=== PATIENT | female | born 1940 | race Caucasian/White ===

== ENCOUNTER 2017-12-27 14:16 | Inpatient (IN) | payer MEDICARE, OTHER ==
[~2017-12-27] VITALS: Ht 160 cm; Wt 55.3 kg
[~2017-12-27 14:16] MED LIST: ATOR40TA PO; HYDR25SU13 RC; LEVO88TA5 PO; MELA3TAB PO; NITR100C6 PO
[2017-12-27] MEDS ORDERED: QUET25TA PO (14:45)
[2017-12-27] MEDS ORDERED: TRAZ-144 PO (14:45)
[2017-12-27] MEDS ORDERED: LEVO100T PO (14:45)
[2017-12-27] MEDS ORDERED: D-MA1POW PO (14:45)
[2017-12-27] MEDS ORDERED: ACET-2154 PO (14:45)
[2017-12-27] MEDS ORDERED: TAMS-3 PO (14:45)
[2017-12-27] MEDS ORDERED: QUET50TA PO (14:45)
[2017-12-27] MEDS ORDERED: ALPR1TAB7 PO (14:45)
[2017-12-27] MEDS ORDERED: VENL37.55 PO (14:45)
[2017-12-27] MEDS ORDERED: CHRONULAC PO (14:45)
[2017-12-27] MEDS ORDERED: LORA-259 PO (14:45)
[2017-12-27 14:56] LABS: BASOPHILS # (AUTO) 0.1 K/uL (0.0-8.0); BASOPHILS % (AUTO) 1.3 % (0.0-2.0); EOSINOPHILS # (AUTO) 0.1 K/uL (0.0-0.7); EOSINOPHILS % (AUTO) 1.4 % (0.0-7.0); HEMATOCRIT 36.9 % (31.2-41.9); HEMOGLOBIN 12.5 g/dL (10.9-14.3); LYMPHOCYTES # (AUTO) 1.9 K/uL (20.0-40.0); LYMPHOCYTES % (AUTO) 26.7 % (20.5-51.5); MEAN CORPUSCULAR HGB CONC 34 g/dL (32.3-35.6); MEAN CORPUSCULAR VOLUME 88.4 fL (75.5-95.3); MONOCYTES # (AUTO) 0.5 K/uL (2.0-10.0); MONOCYTES % (AUTO) 7.2 % (0.0-11.0); NEUTROPHILS # (AUTO) 4.6 K/uL (1.8-8.9); NEUTROPHILS % (AUTO) 63.4 % (38.5-71.5); PLATELET COUNT (AUTO) 288 K/uL (179-408); RED BLOOD CELL COUNT(AUTO) 4.17 MIL/uL (3.63-4.92); WHITE BLOOD COUNT (AUTO) 7.2 K/uL (3.8-11.8)
[2017-12-27 14:57] LABS: ETHANOL < 3 MG/DL (0-0)
[2017-12-27 15:01] LABS: CARBON DIOXIDE 28 mmol/L (21-32); CHLORIDE 96 mmol/L (98-107); CREATININE 0.9 mg/dL (0.6-1.3); GLUCOSE 94 mg/dL (74-106); POTASSIUM 4.2 mmol/L (3.5-5.1); UREA NITROGEN, BLOOD 19 mg/dL (7-18)
[2017-12-27 15:02] LABS: ACETAMINOPHEN < 2.0 ug/mL (10-30); ALANINE AMINOTRANSFERASE 16 U/L (14-59); ALKALINE PHOSPHATASE 113 U/L (50-136); ASPARTATE AMINOTRANSFERASE 16 U/L (15-37); BILIRUBIN,DIRECT 0.1 mg/dL (0.0-0.2); BILIRUBIN,TOTAL 0.3 mg/dL (0.2-1.0); TOTAL PROTEIN, SERUM 7.4 g/dL (6.4-8.2)
[2017-12-27 15:37] LABS: *BILIRUBIN,URIN NEGATIVE (NEGATIVE); *BLOOD, URINE NEGATIVE (NEGATIVE); *CLARITY,URINE SLIGHTLY CLOUDY (CLEAR); *COLOR,URINE YELLOW (YELLOW); *KETONES,URINE NEGATIVE (NEGATIVE); *PROTEIN,URINE NEGATIVE (NEGATIVE); *UROBILINOGEN,URINE 0.2 E.U./dl (NORMAL); LEUKOCYTE ESTERASE ,URINE NEGATIVE (NEGATIVE); NITRITE, URINE NEGATIVE (NEGATIVE); UGLUCOSE NEGATIVE (NEGATIVE)
[2017-12-27 15:41] LABS: *AMPHETAMINE, URINE NEGATIVE (NEGATIVE); *BARBITURATE, URINE NEGATIVE (NEGATIVE); *CANNABINOID, URINE NEGATIVE (NEGATIVE); *COCCAINE, URINE NEGATIVE (NEGATIVE); *OPIATE, URINE NEGATIVE (NEGATIVE); *PHENCYCLIDINE SCREEN,URINE NEGATIVE (NEGATIVE)
[2017-12-27 15:53] LABS: BACTERIA,URINE NONE SEEN /HPF (NONE SEEN); RBC,URINE 0-3 /HPF (0-3); WBC,URINE 0-3 /HPF (0-3)
[2017-12-27 15:54] LABS: SQUAMOUS EPITHELIAL CELL,UR FEW /HPF (NONE SEEN)
[2017-12-27] MEDS ORDERED: ALPRAZOLAM 0.25 MG TABLET PO ONE (16:00)
[2017-12-27] MEDS ORDERED: ALPRAZOLAM 0.25 MG TABLET ONE ×2 (16:21→16:24)
[2017-12-27 16:40] VITALS: BP 126/69
[2017-12-27] MEDS ORDERED: HYDROXYZINE PAMOATE 25 MG CAPSULE PO PRN (17:00)
[2017-12-27] MEDS ORDERED: ZOLPIDEM 5 MG TABLET PO PRN (17:00)
[2017-12-27] MEDS ORDERED: ACETAMINOPHEN 325 MG TABLET PO PRN (17:00)
[2017-12-27] MEDS ORDERED: MAGNESIUM HYDROXIDE 30 ML LIQUID UDC PO PRN (17:00)
[2017-12-27] MEDS ORDERED: MAG HYDROX/AL HYDROX/SIMETH 30 ML LIQUID UDC PO PRN (17:00)
[2017-12-27 19:47] VITALS: BP 131/61
[2017-12-27] MEDS ORDERED: ALPRAZOLAM 0.5 MG TABLET PO ONE (21:55)
[2017-12-28] MEDS: ACETAMINOPHEN 325 MG TABLET PO SCH ×5 (01:01→18:00)
[2017-12-28] MEDS ORDERED: ALPRAZOLAM 0.5 MG TABLET ONE (01:16)
[2017-12-28] MEDS: LEVOTHYROXINE SODIUM 100 MCG TABLET PO SCH (06:55)
[2017-12-28 07:30] VITALS: BP 117/67
[2017-12-28] MEDS: TAMSULOSIN HCL 0.4 MG CAP.SR.24H PO SCH ×2 (08:43→17:22)
[2017-12-28] MEDS: DOCUSATE SODIUM 100 MG CAPSULE PO SCH ×2 (08:43→20:34)
[2017-12-28] MEDS ORDERED: D MANNOSE 1 GM PO SCH (09:00)
[2017-12-28] MEDS ORDERED: QUETIAPINE FUMARATE 25 MG TABLET PO ONE (11:43)
[2017-12-28] MEDS ORDERED: OLANZAPINE 10 MG VIAL IM ONE (12:00)
[2017-12-28] MEDS: DIVALPROEX 250 MG TABLET.DR PO SCH ×2 (14:15→17:21)
[2017-12-28] MEDS: ALPRAZOLAM 0.5 MG TABLET PO SCH ×2 (14:22→17:21)
[2017-12-28 15:37] VITALS: BP 125/58
[2017-12-28] MEDS: QUETIAPINE FUMARATE 25 MG TABLET PO SCH (17:23)
[2017-12-28 19:37] VITALS: BP 116/55
[2017-12-28] MEDS: ATORVASTATIN 10 MG TABLET PO SCH (20:34)
[2017-12-28] MEDS: QUETIAPINE FUMARATE 200 MG TABLET PO SCH (21:16)
[2017-12-29] MEDS: ACETAMINOPHEN 325 MG TABLET PO SCH
[2017-12-29] MEDS: LEVOTHYROXINE SODIUM 100 MCG TABLET PO SCH (07:00)
[2017-12-29] MEDS: HYDROXYZINE PAMOATE 25 MG CAPSULE PO PRN ×2 (08:13→14:43)
[2017-12-29] MEDS: DIVALPROEX 250 MG TABLET.DR PO SCH ×3 (08:20→16:54)
[2017-12-29] MEDS: DOCUSATE SODIUM 100 MG CAPSULE PO SCH ×2 (08:20→21:06)
[2017-12-29] MEDS: ALPRAZOLAM 0.5 MG TABLET PO SCH ×3 (08:20→16:54)
[2017-12-29] MEDS: QUETIAPINE FUMARATE 25 MG TABLET PO SCH ×3 (08:20→16:54)
[2017-12-29] MEDS: TAMSULOSIN HCL 0.4 MG CAP.SR.24H PO SCH ×2 (08:20→16:54)
[2017-12-29 08:30] VITALS: BP 131/65
[2017-12-29 17:24] VITALS: BP 118/69
[2017-12-29 20:09] VITALS: BP 101/55
[2017-12-29] MEDS: QUETIAPINE FUMARATE 200 MG TABLET PO SCH (21:05)
[2017-12-29] MEDS: ATORVASTATIN 10 MG TABLET PO SCH (21:06)
[2017-12-30] MEDS: HYDROXYZINE PAMOATE 25 MG CAPSULE PO PRN ×4 (03:19→16:52)
[2017-12-30] MEDS: LEVOTHYROXINE SODIUM 100 MCG TABLET PO SCH (06:19)
[2017-12-30 07:30] VITALS: BP 114/61
[2017-12-30 07:36] LABS: CARBON DIOXIDE 30 mmol/L (21-32); CHLORIDE 98 mmol/L (98-107); CREATININE 0.9 mg/dL (0.6-1.3); GLUCOSE 90 mg/dL (74-106); POTASSIUM 3.9 mmol/L (3.5-5.1); UREA NITROGEN, BLOOD 13 mg/dL (7-18)
[2017-12-30] MEDS: DIVALPROEX 250 MG TABLET.DR PO SCH ×3 (08:04→16:52)
[2017-12-30] MEDS: QUETIAPINE FUMARATE 25 MG TABLET PO SCH ×3 (08:04→16:52)
[2017-12-30] MEDS: ALPRAZOLAM 0.5 MG TABLET PO SCH ×3 (08:04→16:52)
[2017-12-30] MEDS: TAMSULOSIN HCL 0.4 MG CAP.SR.24H PO SCH ×2 (08:04→16:51)
[2017-12-30] MEDS: DOCUSATE SODIUM 100 MG CAPSULE PO SCH ×2 (08:04→20:29)
[2017-12-30] MEDS: MAGNESIUM HYDROXIDE 30 ML LIQUID UDC PO PRN (11:01)
[2017-12-30 16:37] VITALS: BP 98/66
[2017-12-30 20:00] VITALS: BP 97/51
[2017-12-30] MEDS: ATORVASTATIN 10 MG TABLET PO SCH (20:29)
[2017-12-30] MEDS: QUETIAPINE FUMARATE 200 MG TABLET PO SCH (21:17)
[2017-12-30 21:19] VITALS: BP 124/61
[2017-12-31] MEDS: HYDROXYZINE PAMOATE 25 MG CAPSULE PO PRN (02:13)
[2017-12-31] MEDS: LEVOTHYROXINE SODIUM 100 MCG TABLET PO SCH (06:24)
[2017-12-31 08:00] VITALS: BP 127/61
[2017-12-31] MEDS: DOCUSATE SODIUM 100 MG CAPSULE PO SCH ×2 (08:39→21:19)
[2017-12-31] MEDS: ALPRAZOLAM 0.5 MG TABLET PO SCH ×3 (08:39→16:38)
[2017-12-31] MEDS: QUETIAPINE FUMARATE 25 MG TABLET PO SCH ×3 (08:39→16:52)
[2017-12-31] MEDS: TAMSULOSIN HCL 0.4 MG CAP.SR.24H PO SCH ×2 (08:39→16:38)
[2017-12-31] MEDS: DIVALPROEX 250 MG TABLET.DR PO SCH ×3 (08:39→16:38)
[2017-12-31 16:00] VITALS: BP 114/56
[2017-12-31 20:41] VITALS: BP 111/57
[2017-12-31] MEDS: ATORVASTATIN 10 MG TABLET PO SCH (21:19)
[2017-12-31] MEDS: QUETIAPINE FUMARATE 200 MG TABLET PO SCH (21:19)
[2018-01-01] MEDS: LEVOTHYROXINE SODIUM 100 MCG TABLET PO SCH (06:26)
[2018-01-01] MEDS: TAMSULOSIN HCL 0.4 MG CAP.SR.24H PO SCH ×2 (08:19→17:06)
[2018-01-01] MEDS: QUETIAPINE FUMARATE 25 MG TABLET PO SCH ×3 (08:19→17:06)
[2018-01-01] MEDS: ALPRAZOLAM 0.5 MG TABLET PO SCH ×3 (08:19→17:06)
[2018-01-01] MEDS: DIVALPROEX 250 MG TABLET.DR PO SCH ×3 (08:19→17:06)
[2018-01-01] MEDS: DOCUSATE SODIUM 100 MG CAPSULE PO SCH ×2 (08:19→21:26)
[2018-01-01 16:14] VITALS: BP 98/58
[2018-01-01] MEDS: MAGNESIUM HYDROXIDE 30 ML LIQUID UDC PO PRN (20:05)
[2018-01-01 21:06] VITALS: BP 136/63
[2018-01-01] MEDS: QUETIAPINE FUMARATE 200 MG TABLET PO SCH (21:26)
[2018-01-01] MEDS: ATORVASTATIN 10 MG TABLET PO SCH (21:26)
[2018-01-02] MEDS: HYDROXYZINE PAMOATE 25 MG CAPSULE PO PRN (04:00)
[2018-01-02] MEDS: LEVOTHYROXINE SODIUM 100 MCG TABLET PO SCH (06:02)
[2018-01-02] MEDS: QUETIAPINE FUMARATE 25 MG TABLET PO SCH ×3 (08:04→16:17)
[2018-01-02] MEDS: DOCUSATE SODIUM 100 MG CAPSULE PO SCH ×2 (08:04→20:55)
[2018-01-02] MEDS: TAMSULOSIN HCL 0.4 MG CAP.SR.24H PO SCH ×2 (08:04→16:17)
[2018-01-02] MEDS: ALPRAZOLAM 0.5 MG TABLET PO SCH ×3 (08:04→16:17)
[2018-01-02] MEDS: DIVALPROEX 250 MG TABLET.DR PO SCH ×3 (08:04→16:17)
[2018-01-02] MEDS ORDERED: BISACODYL 10 MG SUPP.RECT RC ONE (10:45)
[2018-01-02] MEDS: PAROXETINE HCL 10 MG TABLET PO SCH (12:21)
[2018-01-02] MEDS: ATORVASTATIN 10 MG TABLET PO SCH (20:55)
[2018-01-02] MEDS: QUETIAPINE FUMARATE 200 MG TABLET PO SCH (20:55)
[2018-01-02 21:46] VITALS: BP 107/58
[2018-01-03] MEDS: LEVOTHYROXINE SODIUM 100 MCG TABLET PO SCH (06:17)
[2018-01-03 07:30] VITALS: BP 169/61
[2018-01-03] MEDS: HYDROXYZINE PAMOATE 25 MG CAPSULE PO PRN (07:58)
[2018-01-03] MEDS: QUETIAPINE FUMARATE 25 MG TABLET PO SCH ×3 (08:11→17:02)
[2018-01-03] MEDS: ALPRAZOLAM 0.5 MG TABLET PO SCH ×3 (08:11→17:02)
[2018-01-03] MEDS: DIVALPROEX 250 MG TABLET.DR PO SCH ×3 (08:11→17:01)
[2018-01-03] MEDS: TAMSULOSIN HCL 0.4 MG CAP.SR.24H PO SCH ×2 (08:11→17:02)
[2018-01-03] MEDS: PAROXETINE HCL 10 MG TABLET PO SCH (08:11)
[2018-01-03] MEDS: DOCUSATE SODIUM 100 MG CAPSULE PO SCH ×2 (08:12→20:41)
[2018-01-03 15:00] VITALS: BP 96/62
[2018-01-03 20:11] VITALS: BP 100/50
[2018-01-03] MEDS: QUETIAPINE FUMARATE 200 MG TABLET PO SCH (20:41)
[2018-01-03] MEDS: ATORVASTATIN 10 MG TABLET PO SCH (20:41)
[2018-01-04] MEDS: LEVOTHYROXINE SODIUM 100 MCG TABLET PO SCH (06:03)
[2018-01-04 07:30] VITALS: BP 111/69
[2018-01-04] MEDS: TAMSULOSIN HCL 0.4 MG CAP.SR.24H PO SCH ×2 (08:12→17:11)
[2018-01-04] MEDS: DOCUSATE SODIUM 100 MG CAPSULE PO SCH ×2 (08:12→22:20)
[2018-01-04] MEDS: DIVALPROEX 250 MG TABLET.DR PO SCH ×3 (08:12→17:11)
[2018-01-04] MEDS: ALPRAZOLAM 0.5 MG TABLET PO SCH ×3 (08:12→17:11)
[2018-01-04] MEDS: QUETIAPINE FUMARATE 25 MG TABLET PO SCH ×3 (08:12→17:11)
[2018-01-04] MEDS: PAROXETINE HCL 10 MG TABLET PO SCH (08:12)
[2018-01-04 16:23] VITALS: BP 120/67
[2018-01-04 20:47] VITALS: BP 108/57
[2018-01-04] MEDS: ATORVASTATIN 10 MG TABLET PO SCH (22:20)
[2018-01-04] MEDS: QUETIAPINE FUMARATE 200 MG TABLET PO SCH (22:20)
[2018-01-04 22:22] VITALS: BP 121/55
[2018-01-05] MEDS: LEVOTHYROXINE SODIUM 100 MCG TABLET PO SCH (06:46)
[2018-01-05 07:30] VITALS: BP 117/55
[2018-01-05] MEDS: PAROXETINE HCL 10 MG TABLET PO SCH (08:48)
[2018-01-05] MEDS: TAMSULOSIN HCL 0.4 MG CAP.SR.24H PO SCH ×2 (08:48→16:50)
[2018-01-05] MEDS: ALPRAZOLAM 0.5 MG TABLET PO SCH ×3 (08:48→16:50)
[2018-01-05] MEDS: DIVALPROEX 250 MG TABLET.DR PO SCH ×3 (08:48→16:50)
[2018-01-05] MEDS: QUETIAPINE FUMARATE 25 MG TABLET PO SCH ×3 (08:49→16:50)
[2018-01-05] MEDS: DOCUSATE SODIUM 100 MG CAPSULE PO SCH ×2 (08:49→21:53)
[2018-01-05 17:01] VITALS: BP 111/57
[2018-01-05 19:44] VITALS: BP 102/53
[2018-01-05] MEDS: ATORVASTATIN 10 MG TABLET PO SCH (21:53)
[2018-01-05] MEDS: QUETIAPINE FUMARATE 200 MG TABLET PO SCH (21:53)
[2018-01-05 21:55] VITALS: BP 110/64
[2018-01-06] MEDS: LEVOTHYROXINE SODIUM 100 MCG TABLET PO SCH (06:22)
[2018-01-06 07:43] VITALS: BP 118/63
[2018-01-06] MEDS: TAMSULOSIN HCL 0.4 MG CAP.SR.24H PO SCH (08:24)
[2018-01-06] MEDS: PAROXETINE HCL 10 MG TABLET PO SCH (08:24)
[2018-01-06] MEDS: DOCUSATE SODIUM 100 MG CAPSULE PO SCH (08:25)
[2018-01-06] MEDS: ALPRAZOLAM 0.5 MG TABLET PO SCH ×2 (08:25→11:23)
[2018-01-06] MEDS: QUETIAPINE FUMARATE 25 MG TABLET PO SCH ×2 (08:25→11:23)
[2018-01-06] MEDS: DIVALPROEX 250 MG TABLET.DR PO SCH ×2 (08:25→11:23)
== END 2018-01-06 11:45 | DRG 885 ==
LOC: ER 14:17 → GPS 16:15
PROVIDERS: ADMIT Psychiatry & Neurology Psychiatry; ATTEND Registered Nurse
DX: F31.5 Bipolar disorder, current episode depressed, severe, with psychotic features (principal); E87.1 Hypo-osmolality and hyponatremia; E78.5 Hyperlipidemia, unspecified; F41.9 Anxiety disorder, unspecified; F60.4 Histrionic personality disorder; H91.93 Unspecified hearing loss, bilateral; Z87.440 Personal history of urinary (tract) infections; Z79.899 Other long term (current) drug therapy; K59.00 Constipation, unspecified; G47.9 Sleep disorder, unspecified; E03.9 Hypothyroidism, unspecified
CPT/HCPCS: 36415; 71045; 80164; 80307; 84443; 85025; 93005; A4663; G0480; G0480-TC; J2358; J3490